=== PATIENT | female | born 1955 | race Caucasian/White ===

== ENCOUNTER 2017-05-09 15:16 | Outpatient (CLI) | payer OTHER ==
[~2017-05-09 15:16] MED LIST: Gadobenate Dimeglumine 529 MG/1 ML (20ML VIAL) ONE
--- NOTE | 2017-05-09 17:13 | MRI ---
PRE AND POST CONTRAST ENHANCED MRI IMAGES OF THE BRAIN AND IACs: History: Vertigo, asymmetric hearing loss. FINDINGS: Multiplanar, multisequence pre and post contrast enhanced MRI images of the brain and IACs demonstrat e the brain to be unremarkable. No evidence of intracranial masses, hemorrhages, strokes or contusion s seen. The ventricles are of normal size. No definite evidence of abnormal enhancement is seen within the internal auditory canals. Cochlea and vestibular nerves and facial nerves are unremarkable without evidence of definite significant abnorm al enhancement or mass lesions. There does appear to be abnormal enhancement of the left cochlea and left vestibule. This may represe nt an inflammatory process. I would recommend follow up imaging to confirm resolution. There does appear to be fluid in the left mastoid air cells which may represent a left mastoid infect ion which may have extended into the left inner ear. No evidence of hydrocephalus or significant evidence of intracranial mass lesions seen otherwise. No evidence of obvious dural based masses or lesions seen. Incidentally noted small left middle cranial fossa arachnoid cyst is also present measuring approxima tely 12 x 5.5 mm. IMPRESSION: 1. Asymmetric abnormal enhancement of the left cochlea and vestibule. This may represent an inflammat ory process. 2. Also noted is some fluid in the left mastoid air cells and a tiny amount of fluid in the right mas toid air cells. POS: [facility]
== END 2017-05-09 15:17 | disposition home or self-care (01) ==
LOC: SCSMRI 15:16
PROVIDERS: ATTEND Otolaryngology
DX: H90.3 Sensorineural hearing loss, bilateral (principal); R42 Dizziness and giddiness
CPT/HCPCS: 70553; 82565; A9579

== ENCOUNTER 2017-10-06 15:33 | Outpatient (CLI) | payer OTHER | END 2017-10-06 15:34 | disposition home or self-care (01) | LOC: BICMAMMO 15:33 | PROVIDERS: ATTEND Family Medicine | DX: Z12.31 Encounter for screening mammogram for malignant neoplasm of breast (principal); Z80.3 Family history of malignant neoplasm of breast | CPT/HCPCS: 77063; 77067 ==

== ENCOUNTER 2018-03-03 08:57 | Outpatient (CLI) | payer OTHER ==
--- NOTE | 2018-03-03 11:27 | MRI ---
MRI BRAIN WITH AND WITHOUT CONTRAST: HISTORY: Followup for acoustic neuroma. Worsening vertigo. COMPARISON: 05/09/2017 TECHNIQUE: A brain MRI and an internal auditory canal MRI is performed with and without intravenous Gadolinium a dministration. Multisequential, multiplanar imaging is performed. FINDINGS: Appropriate T1 marrow signal intensity of the calvarium. Midline brain parenchymal structures are un remarkable. Minimal T2 and FLAIR white matter hyperintensities, nonspecific, but felt to be due to chronic small vessel ischemic change. There is no parenchymal mass, mass effect, or midline shift. Brain volume is age appropriate. Corti christina brandt white matter differentiation is preserved. No evidence of hydrocephalus. Central arterial flow voids are maintained. Absent restricted diffusion. Remote lacunar infarct adjacent to the posterior aspect of the right caudate nucleus is suspected. There is adequate aeration of the right mastoid air cells. There is partial opacification of the lef t mastoid air cells. There is mild mucosal thickening of the ethmoid air cells. No pathologic enhancement of the brain parenchyma. MRI INTERNAL AUDITORY CANALS: There is symmetric signal intensity in both inner ear structures. The re is symmetric signal intensity of the 7th-8th cranial nerve complexes, as well as the 5th cranial n erve complex. Post contrast images do not demonstrate any abnormal enhancement. IMPRESSION: 1. Partial opacification of the left mastoid air cells and bilateral ethmoidal mucosal thickening. 2. No acute intracranial process. 3. No abnormal enhancement with regard to either 7th or 8th cranial or either inner ear. Previous l eft inner ear enhancement is not appreciated. POS: [facility]
== END 2018-03-03 08:58 | disposition home or self-care (01) ==
LOC: SCSMRI 08:57
PROVIDERS: ATTEND Otolaryngology Otology & Neurotology
DX: D33.3 Benign neoplasm of cranial nerves (principal); H93.19 Tinnitus, unspecified ear; H74.8X1 Other specified disorders of right middle ear and mastoid; J34.89 Other specified disorders of nose and nasal sinuses
CPT/HCPCS: 70553; 82565

== ENCOUNTER 2018-11-28 14:26 | Outpatient (CLI) | payer OTHER ==
--- NOTE | 2018-11-28 15:54 | MMO ---
Bilateral MAMMO Bilat Screen [facility]. CLINICAL HISTORY: Patient is 63 years old and is seen for screening. The patient has the following family history of breast cancer: cousin female, MATERNAL and maternal aunt. The patient has no personal history of cancer. VIEWS: The views performed were: bilateral craniocaudal with tomosynthesis and bilateral mediolateral oblique with tomosynthesis. FILMS COMPARED: The present examination has been compared to prior imaging studies performed at [facility] on 01/18/2012, 04/11/2014 and 10/06/2017, and at [facility] on 01/04/2011. This study has been interpreted with the assistance of computer-aided detection. MAMMOGRAM FINDINGS: The breasts are heterogeneously dense, which could obscure a lesion on mammography. There are benign appearing and vascular calcifications seen in both breasts. There are no suspicious masses, suspicious calcifications, or new areas of architectural distortion. IMPRESSION: THERE IS NO MAMMOGRAPHIC EVIDENCE OF MALIGNANCY. A ROUTINE FOLLOW-UP MAMMOGRAM IN 1 YEAR IS RECOMMENDED. THE RESULTS OF THIS EXAM WERE SENT TO THE PATIENT. ACR BI-RADS Category 2 - Benign finding MAMMOGRAPHY NOTE: 1. A negative mammogram report should not delay a biopsy if a dominant of clinically suspicious mass is present. 2. Approximately 10% to 15% of breast cancers are not detected by mammography. 3. Adenosis and dense breasts may obscure an underlying neoplasm. Reported by: LINDA MAJANO MD Electonically Signed: [id number]
== END 2018-11-28 14:27 | disposition home or self-care (01) ==
LOC: BICMAMMO 14:26
PROVIDERS: ATTEND Family Medicine
DX: Z12.31 Encounter for screening mammogram for malignant neoplasm of breast (principal); Z80.3 Family history of malignant neoplasm of breast
CPT/HCPCS: 77063; 77067

== ENCOUNTER 2020-02-26 10:16 | Outpatient (CLI) | payer OTHER ==
--- NOTE | 2020-02-26 10:50 | MMO ---
Bilateral MAMMO Bilat Screen [facility]. CLINICAL HISTORY: Patient is 64 years old and is seen for screening. The patient has the following family history of breast cancer: cousin female, MATERNAL; maternal aunt and sister, at age 62, malignant (generic). The patient has no personal history of cancer. VIEWS: The views performed were: bilateral craniocaudal with tomosynthesis and bilateral mediolateral oblique with tomosynthesis. FILMS COMPARED: The present examination has been compared to prior imaging studies performed at [facility] on 01/18/2012, 04/11/2014, 10/06/2017 and 11/28/2018. This study has been interpreted with the assistance of computer-aided detection. MAMMOGRAM FINDINGS: There are scattered fibroglandular densities. There are vascular calcifications seen in both breasts. There are no suspicious masses, suspicious calcifications, or new areas of architectural distortion. IMPRESSION: A ROUTINE FOLLOW-UP MAMMOGRAM IN 1 YEAR IS RECOMMENDED. THE RESULTS OF THIS EXAM WERE SENT TO THE PATIENT. ACR BI-RADS Category 2 - Benign finding MAMMOGRAPHY NOTE: 1. A negative mammogram report should not delay a biopsy if a dominant of clinically suspicious mass is present. 2. Approximately 10% to 15% of breast cancers are not detected by mammography. 3. Adenosis and dense breasts may obscure an underlying neoplasm. Reported by: JEFFREY WEEKS MD Electonically Signed: [id number]
== END 2020-02-26 10:17 | disposition home or self-care (01) ==
LOC: BICMAMMO 10:16
PROVIDERS: ATTEND Family Medicine
DX: Z12.31 Encounter for screening mammogram for malignant neoplasm of breast (principal); Z80.3 Family history of malignant neoplasm of breast
CPT/HCPCS: 77063; 77067

== ENCOUNTER 2021-08-06 09:09 | Outpatient (CLI) | payer MEDICARE, OTHER | END 2021-08-06 09:10 | disposition home or self-care (01) | LOC: BICMAMMO 09:09 | PROVIDERS: ATTEND Family Medicine | DX: Z12.31 Encounter for screening mammogram for malignant neoplasm of breast (principal); Z80.3 Family history of malignant neoplasm of breast | CPT/HCPCS: 77063; 77067 ==

== ENCOUNTER 2024-12-25 12:27 | Outpatient (CLI) | payer MEDICARE, OTHER | END 2024-12-25 12:28 | disposition home or self-care (01) | LOC: BICMAMMO 12:27 | PROVIDERS: ATTEND Family Medicine | DX: Z78.0 Asymptomatic menopausal state (principal); M85.852 Other specified disorders of bone density and structure, left thigh | CPT/HCPCS: 77080 ==